=== PATIENT | male | born 1995 | race Two or more races ===

== ENCOUNTER 2024-09-04 15:10 | Emergency (ER) | payer OTHER, SELFPAY ==
[2024-09-04 15:30] VITALS: BP 102/60; PULSE 65; RESP 18; TEMP 36.5; O2SAT 95; BMI 29.8
--- NOTE | 2024-09-04 15:41 | XR_ITS ---
Examination: Hand, left 3 views Technique: Hand AP, oblique, lateral 3 views, left Date and time of exam: September 04, 2024 at 1555 hours INDICATIONS: Injury to the hand today, hand pain FINDINGS: No acute fracture Suspicious for fracture off the dorsal base distal phalanx fifth digit IMPRESSION: Recommend follow-up coned views fifth digit including a true lateral view
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
[2024-09-04 16:55] VITALS: BMI 29.8
== END 2024-09-04 17:00 | disposition home or self-care (01) ==
PROVIDERS: Emergency Provider Emergency Medicine
DX: S62.637A Displaced fracture of distal phalanx of left little finger, initial encounter for closed fracture (principal); Y35.811A Legal intervention involving manhandling, law enforcement official injured, initial encounter; Y99.0 Civilian activity done for income or pay
CPT/HCPCS: 73130; 99283